=== PATIENT | female | born 2000 | race Caucasian/White ===

== ENCOUNTER → 2022-03-03 11:00 | Outpatient (BNVA) | payer OTHER, MEDICAID, SELFPAY | PROVIDERS: Family Provider Nurse Practitioner Family; Visit Provider Nurse Practitioner Women's Health | DX: Z34.90 Encounter for supervision of normal pregnancy, unspecified, unspecified trimester (principal); R31.9 Hematuria, unspecified | CPT/HCPCS: 81025; 84315; 87086 ==

== ENCOUNTER → 2022-04-05 13:48 | Outpatient (BNVA) | payer OTHER, MEDICAID, SELFPAY | PROVIDERS: Family Provider Nurse Practitioner Family; Visit Provider Obstetrics & Gynecology | DX: Z34.90 Encounter for supervision of normal pregnancy, unspecified, unspecified trimester (principal) | CPT/HCPCS: 80307; 84315; 84443; 85027; 86592; 86762; 86803; 86850; 86900; 87086; 87340; 87491; 87591; 87661; 87806; 88175 ==

== ENCOUNTER → 2022-05-03 16:45 | Outpatient (BNVA) | payer OTHER, MEDICAID, SELFPAY | PROVIDERS: Family Provider Nurse Practitioner Family; Visit Provider Nurse Practitioner Women's Health | DX: Z34.90 Encounter for supervision of normal pregnancy, unspecified, unspecified trimester (principal) | CPT/HCPCS: 84315; 84443; 86762 ==

== ENCOUNTER → 2022-08-11 07:37 | Outpatient (BNVA) | payer OTHER, MEDICAID, SELFPAY | PROVIDERS: Family Provider Nurse Practitioner Family; Visit Provider Obstetrics & Gynecology | DX: Z34.90 Encounter for supervision of normal pregnancy, unspecified, unspecified trimester (principal) | CPT/HCPCS: 82950; 84315; 85025 ==

== ENCOUNTER 2022-08-31 08:34 | Outpatient (CLI) | payer OTHER, MEDICAID, SELFPAY ==
--- NOTE | 2022-08-31 08:45 | US_ITS ---
WS: [id number] ULTRASOUND OB LIMITED TECHNIQUE: Limited ultrasound examination of the fetus. CLINICAL INFORMATION: Z34.90 - Encounter for supervision of normal , u... COMPARISON: June 28, 2022 FINDINGS: Cervix not well visualized today. Single interuterine gestation. presentation is vertex Placental location is anterior. Placenta grade: 0. heart rate 164 BPM. Normal ROSELYN 7.7 cm Anatomy: BDP: 8.0 cm = 32w0d HC: 29.4 cm = 32w3d AC: 27.7 cm = 31w5d FEMUR LENGTH: 6.1 cm = 31w4d Estimated weight: 1835 g; 4 lbs. 1 oz. 57th percentile based on gestational age EGA by ultrasound: 32w0d TAMEKA by ultrasound: 10/26/2022 US/[place] [id number] IMPRESSION: 1. Single intrauterine gestation with normal cardiac activity. 2. EGA by ultrasound: 32w0d 3. TAMEKA by ultrasound: 10/26/2022 4. Normal growth parameters. 5. Normal ROSELYN.
== END 2022-08-31 08:35 | disposition home or self-care (01) ==
PROVIDERS: Visit Provider Obstetrics & Gynecology
DX: Z34.93 Encounter for supervision of normal pregnancy, unspecified, third trimester (principal); Z3A.32 32 weeks gestation of pregnancy
CPT/HCPCS: 76816

== ENCOUNTER → 2022-09-16 14:50 | Outpatient (BNVA) | payer OTHER, MEDICAID, SELFPAY | PROVIDERS: Visit Provider Obstetrics & Gynecology | DX: Z34.90 Encounter for supervision of normal pregnancy, unspecified, unspecified trimester (principal) | CPT/HCPCS: 84315; 85025 ==

== ENCOUNTER → 2022-10-01 08:38 | Outpatient (BNVA) | payer OTHER, MEDICAID, SELFPAY | PROVIDERS: Visit Provider Obstetrics & Gynecology | DX: Z34.90 Encounter for supervision of normal pregnancy, unspecified, unspecified trimester (principal) | CPT/HCPCS: 84315; 84443; 87081 ==

== ENCOUNTER → 2022-10-07 13:14 | Outpatient (BNVA) | payer OTHER, MEDICAID, SELFPAY | PROVIDERS: Visit Provider Obstetrics & Gynecology | DX: Z34.90 Encounter for supervision of normal pregnancy, unspecified, unspecified trimester (principal) | CPT/HCPCS: 84315; 87086 ==

== ENCOUNTER 2022-10-13 14:46 | Inpatient (IN) | payer OTHER, MEDICAID, SELFPAY ==
[2022-10-13] VITALS (24 sets, daily range): BP systolic 114–162; BP diastolic 57–89; PULSE 55–150; RESP 16–17; TEMP 36.9–37.2; BMI 40.4
[2022-10-13 15:52] LABS: Basophils % 0.3 %; Eosinophils # 0.1 10^3/uL (0.0-0.8); Eosinophils % 0.8 %; Hematocrit 35.3 % (37.0-47.0); Hemoglobin 11.7 g/dL (11.5-15.3); Lymphocytes # 1.7 10^3/uL (0.8-4.8); Lymphocytes % 16.4 %; Mean Corpuscular HGB Conc 33.1 g/dL (30.0-36.0); Mean Corpuscular Hemoglobin 29.5 pg (28.0-34.0); Mean Corpuscular Volume 89.1 fl (81-99); Mean Platelet Volume 11.7 fL (7.4-10.4); Monocytes # 0.6 10^3/uL (0.2-0.9); Monocytes % 5.5 %; Neutrophils # 8.03 10^3/uL (1.8-7.7); Neutrophils % 76.7 %; Nucleated Red Blood Cells % 0 %; Platelet Count 247 10^3/cmm (130-400); Red Blood Count 3.96 10^6/uL (4.1-5.3); Red Cell Distribution Width 13.1 % (12.1-15.1); White Blood Count 10.5 10^3/uL (4.0-10.0)
[2022-10-13] MEDS: dextrose 5%-lactated ringers 1,000 ML 125 ML IV (16:20)
[2022-10-13] MEDS: miSOPROStol 100 mcg tablet 25 MCG VAGINAL ×2 (16:22→20:41)
--- NOTE | 2022-10-13 19:12 | PM.OPHPUD ---
Labor & Delivery H&P Update Date of Procedure: October 13, 2022 Date H&P Performed: 10/07/22 H&P update information: I have reviewed H&P completed within last 30 days, I have examined patient prior to procedure and Changes to prior documentation as noted here Changes to previous documentation: The patient was found to have an IUGR fetus on recent ultrasound. She is being induced for that reason. Admission Diagnosis: at 37w6d, IUGR, rubella non-immune
[2022-10-13] MEDS: fentaNYL 50 mcg/mL INJ 2mL IVP ×2 (20:44→23:30)
[2022-10-13] MEDS: lactated ringers 1,000 ML 999 ML IV (22:15)
[2022-10-13] MEDS: oxytocin 30 UNIT/500 ML BAG 600 UNIT IV (23:18)
--- NOTE | 2022-10-13 23:40 | P.PCNOB_ITS ---
Delivery Note: Date of delivery: October 13, 2022 Pre-delivery diagnoses: iup@ 37w6d, iugr Post-delivery diagnoses: same-delivered Procedure: Delivering Physician: elena Estimated blood loss (mL): 30 Findings: term female in the lila presentation Pre-Delivery Course: The patient was admitted for induction at term. she had one dose of cytotec and began laboring on her own. She had complete cervical dilation and was ready to push. Delivery: The patient had complete cervical dilation and began to push. The head delivered in the LILA position with a compound left arm over an intact perineum under no anesthesia. The nose and mouth were bulb suctioned. The shoulders and body delivered atraumatically. The baby was placed onto the mother's abdomen. The cord was clamped and cut. The placenta delivered spontaneously. It was inspected and found to be intact. Inspection of the perineum revealed a second- degree midline laceration. It was repaired in the usual fashion with 0 Vicryl.. Estimated blood loss 30 mL. Apgars on baby were 9 at 1 minute and 10 at 5 minutes. Weight of baby is 6 pounds 3 ounces. Mother and baby were stable post delivery. History History History 1 Term Miscarriages/Ectopic Living Children Coding Level of Care Code Acute Code for Chg Fwd Diagnoses
[2022-10-13] MEDS: lidocaine 2% INJ 20 mL INJECTION (23:43)
[2022-10-14] VITALS (15 sets, daily range): BP systolic 113–158; BP diastolic 56–92; PULSE 63–102; RESP 16–18; TEMP 36.6–36.8; O2SAT 97
[2022-10-14] MEDS: benzocaine-menthol 78 gm Canister 1 SPRAY TOPICAL (02:00)
[2022-10-14] MEDS: docusate sodium 100 mg Capsule PO ×2 (09:43→20:49)
[2022-10-14] MEDS: ibuprofen 800 mg tablet PO ×3 (09:43→20:49)
[2022-10-14] MEDS: prenatal vitamin Capsule 1 CAP PO (09:43)
[2022-10-14 13:33] LABS: Hematocrit 34.5 % (37.0-47.0); Mean Corpuscular HGB Conc 31.9 g/dL (30.0-36.0); Mean Corpuscular Hemoglobin 28.9 pg (28.0-34.0); Mean Corpuscular Volume 90.8 fl (81-99); Mean Platelet Volume 11.1 fL (7.4-10.4); Platelet Count 219 10^3/cmm (130-400); Red Cell Distribution Width 13.3 % (12.1-15.1); White Blood Count 15.6 10^3/uL (4.0-10.0)
--- NOTE | 2022-10-14 15:50 | PM.PN ---
Subjective Subjective: The patient has done well overnight. Vitals/I&O/Wt Last Vital Signs Temp 98.3 F 10/14/22 09:45 Pulse 87 10/14/22 09:45 Resp 16 10/14/22 09:45 BP 158/92 10/14/22 09:45 Pulse Ox 97 10/14/22 02:42 O2 Del Method Room Air 10/14/22 09:45 10/14/22 10/14/22 10/14/22 06:59 14:59 22:59 Intake Total 1422.917 / 1500.000 Output Total 500 / 500 Balance 922.917 / 1000.000 Weight last 48 hrs Weight 228 lb Physical Exam Narrative: The patient has no concerns today Const: COMMON NORMALS: no acute distress, patient oriented x3, no limitations, alert and well nourished GENERAL APPEARANCE: cooperative, comfortable, well kempt and well developed ORIENTATION/CONSCIOUSNESS: Yes awake, Yes oriented to person, Yes oriented to place and Yes oriented to time Resp: COMMON NORMALS: normal respiratory effort GI: COMMON NORMALS: Soft to palpation and non-tender PALPATION: Yes Soft to palpation Extremity: COMMON NORMALS: no calf tenderness Neuro: COMMON NORMALS: patient oriented x3 SENSORIUM/ORIENTATION: Yes alert, Yes oriented to person, Yes oriented to place and Yes oriented to time Psych: APPEARANCE: Yes well kempt Data 10/14/22 12:56 Attestations Medical Necessity Statement*: The patient had a vaginal delivery. She will be here two midnights Coding Level of Care Code Acute Code for Chg Fwd Diagnoses
[2022-10-15 04:00] VITALS: BP 125/83; PULSE 65; RESP 16; TEMP 36.7; O2SAT 98
--- NOTE | 2022-10-15 08:16 | PM.DCS ---
Discharge Providers Date of Admission: 10/13/22 14:46 Date of Discharge: October 15, 2022 Attending Provider at Admission: Citlali Jimenez MD Attending Provider at Discharge: Citlali Jimenez MD Reason for Visit Reason for Visit: Induction of Labor Hospital Course Hospital Course The patient was admitted for induction at term for IUGR. She had spontaneous delivery of a term female . She did well and was ready for discharge on day #2. Physical Exam Narrative: The patient has no concerns today Const: COMMON NORMALS: no acute distress, patient oriented x3, alert and well nourished GENERAL APPEARANCE: cooperative, comfortable, well kempt and well developed ORIENTATION/CONSCIOUSNESS: Yes awake, Yes oriented to person, Yes oriented to place and Yes oriented to time Resp: COMMON NORMALS: normal respiratory effort EFFORT & INSPECTION: Yes able to speak in complete sentences GI: COMMON NORMALS: Soft to palpation and non-tender PALPATION: Yes Soft to palpation Extremity: COMMON NORMALS: no calf tenderness Neuro: COMMON NORMALS: patient oriented x3 SENSORIUM/ORIENTATION: Yes alert, Yes oriented to person, Yes oriented to place and Yes oriented to time Psych: APPEARANCE: Yes well kempt Discharge Data Studies Completed and Pending Laboratory Results WBC 15.6 10^3/uL (4.0-10.0) H 10/14/22 12:56 RBC 3.80 10^6/uL (4.1-5.3) L 10/14/22 12:56 Hgb 11.0 g/dL (11.5-15.3) L 10/14/22 12:56 Hct 34.5 % (37.0-47.0) L 10/14/22 12:56 MCV 90.8 fl (81-99) 10/14/22 12:56 MCH 28.9 pg (28.0-34.0) 10/14/22 12:56 MCHC 31.9 g/dL (30.0-36.0) 10/14/22 12:56 RDW 13.3 % (12.1-15.1) 10/14/22 12:56 Plt Count 219 10^3/cmm (130-400) 10/14/22 12:56 MPV 11.1 fL (7.4-10.4) H 10/14/22 12:56 Neut % (Auto) 76.7 % 10/13/22 15:10 Lymph % (Auto) 16.4 % 10/13/22 15:10 [place] % (Auto) 5.5 % 10/13/22 15:10 Eos % (Auto) 0.8 % 10/13/22 15:10 Baso % (Auto) 0.3 % 10/13/22 15:10 Neut # (Auto) 8.03 10^3/uL (1.8-7.7) H 10/13/22 15:10 Lymph # (Auto) 1.7 10^3/uL (0.8-4.8) 10/13/22 15:10 [place] # (Auto) 0.6 10^3/uL (0.2-0.9) 10/13/22 15:10 Eos # (Auto) 0.1 10^3/uL (0.0-0.8) 10/13/22 15:10 Baso # (Auto) 0.0 10^3/uL (0.0-0.1) 10/13/22 15:10 Nucleated RBC % (auto) 0 % 10/13/22 15:10 Nucleated RBCs # 0.0 /100WBC 10/13/22 15:10 Vitals Last Vital Signs Temp 98.1 F 10/15/22 04:00 Pulse 65 10/15/22 04:00 Resp 16 10/15/22 04:00 BP 125/83 10/15/22 04:00 Pulse Ox 98 10/15/22 04:00 O2 Del Method Room Air 10/15/22 04:00 Discharge Plan Discharge Patient Disposition: Home Condition: Stable Prescriptions: Continued prenat.vits,juana,[id number] Tablet 1 tab PO DAILY Discharge Orders: Discharge Order (Routine); Ordered 10/15/22 Ordered By: Citlali Jimenez Patient Instructions: Opioid Safety Discharge Attestations Time Spent in Discharge Care*: less than 30 min Quality Metrics Clinical Quality Measures [ No reported AMI, CVA or VTE this stay] Coding Level of Care Code Acute Code for Chg Fwd Diagnoses
[2022-10-15] MEDS: ibuprofen 800 mg tablet PO (08:26)
[2022-10-15] MEDS: prenatal vitamin Capsule 1 CAP PO (08:26)
[2022-10-15] MEDS: docusate sodium 100 mg Capsule PO (08:26)
[2022-10-15 10:00] VITALS: BP 120/79; PULSE 62; RESP 15; O2SAT 98
[2022-10-15 13:30] VITALS: BP 130/85; PULSE 97; RESP 15; TEMP 36.7; O2SAT 99
== END 2022-10-15 13:56 | disposition home or self-care (01) | DRG 807 ==
LOC: OPOB 14:49 → OBGYN 10-14 00:16
PROVIDERS: Admitting Provider Obstetrics & Gynecology; Visit Provider Obstetrics & Gynecology
DX: O36.5930 Maternal care for other known or suspected poor fetal growth, third trimester, not applicable or unspecified (principal); Z37.0 Single live birth; O70.1 Second degree perineal laceration during delivery; Z3A.37 37 weeks gestation of pregnancy
CPT/HCPCS: 36415; 59025; 59409; 85025; 85027; 96374; 96376; 99211; J2590; J3010; J7040; J7120; J7121